=== PATIENT | female | born 1960 | race Caucasian/White ===

== ENCOUNTER 2018-08-26 02:48 | Inpatient (IN) | payer BC ==
[2018-08-26 03:12] LABS: Actual Bicarbonate (HCO3a) 1.4 mEq/L (22-28); Analyzer IN Cardio ER; Calcium, Ionized 1.24 mmol/L (1.12-1.30); Carboxyhemoglobin (COHb) 0.1 gm% (0.0-3.0); Hemoglobin (Hb) 14.1 g/dL (12.0-16.0); O2 Tension (PaO2) 148.9 mmHg (80.0-100.0); Potassium - ABG Lab 4.93 mmol/L (3.70-5.30)
[2018-08-26 03:15] LABS: Base Excess (BEa) -30.7 mEq/L (-2.0 to +3.0); CO2 Tension 7.9 mmHg (35.0-45.0); pH, Arterial 6.87 (7.35-7.45)
[2018-08-26 03:16] LABS: ALV-art Gradient -9.045 (0-20); Puncture Site RRA
[2018-08-26 03:24] LABS: Hemoglobin 13.9 g/dL (12.0-16.0); Mean Corpuscular HGB CONC 31.6 g/dL (32.0-36.0); Mean Corpuscular Hemoglobin 29.8 pg (27.0-31.0); Mean Corpuscular Volume 94.3 fL (78.0-98.0); Mean Platelet Volume 7.4 fL (7.4-10.4); Platelet Count 409 thou/uL (130-400); RBC Distribution Width 12.7 % (11.5-14.5); Red Blood Cell (RBC) Count 4.68 mill/uL (4.20-5.40); White Blood Cell (WBC) Count 23.8 thou/uL (4.8-10.8)
[2018-08-26 03:47] LABS: ALT (SGPT) 19 U/L (8-55); AST (SGOT) 14 U/L (5-34); Alkaline Phosphatase 68 U/L (40-150); BUN (Urea Nitrogen) 24 mg/dL (9.8-20.1); Bilirubin, Total 0.2 mg/dL (0.2-1.2); Calc. Creatinine Clearance 0 mL/min (70-130); Calcium 8.1 mg/dL (7.8-10.44); Chloride 106 mmol/L (98-107); Estimated GFR-MDRD 32; Globulin 2.4 g/dL (2.4-3.5); Glucose 318 mg/dL (70-105); Lipase 30 U/L (8-78); Potassium 5.3 mmol/L (3.5-5.1); Protein, Total 6.4 g/dL (6.0-8.3); Sodium 133 mmol/L (136-145)
[2018-08-26 03:50] LABS: Carbon Dioxide Less than 8 mmol/L (22-29)
[2018-08-26 03:53] LABS: Band 2 % (5-11); Lymphocytes 12 % (21-51); MDiff Complete? YES; Monocytes 4 % (0-10); Neutrophil 82 % (42-75); Platelet Morphology Comment Appears Increased; RBC Morphology Normal
[2018-08-26] MEDS ORDERED: Sodium Bicarb 50 MEQ/50 ML Abboject 8.4% SYRINGE ONE (04:11)
[2018-08-26] MEDS ORDERED: Sodium Bicarb 50 MEQ/50 ML VIAL ONE ×3 (04:12→09:31)
[2018-08-26] MEDS ORDERED: cefTRIAXone\\ROCEPHIN 2 GM VIAL ONE (04:13)
[2018-08-26] MEDS ORDERED: Insulin Regular 100 units/100 ml in NS IVPB SCH (04:15)
[2018-08-26 04:39] LABS: Bilirubin Negative (Negative); Blood, Urine Small (Negative); Clarity CLOUDY (Clear); Glucose, Urine (Dipstick) >=1000 mg/dL (Negative); Leukocyte Negative (Negative); Nitrite Negative (Negative); Protein, Urine (Dipstick) 100 mg/dL (Neg-Trace); Specific Gravity, Urine 1.018 (1.002-1.036); Urobilinogen 0.2 mg/dL (0.2-1.0); pH, Urine 5.5 (5.0-9.0)
[2018-08-26 04:41] LABS: Bacteria/HPF None Seen HPF (None Seen); Pathc Cast-AUWi Flag 2.76 (0-2.49); WBC/HPF 0-3 HPF (0-3)
[2018-08-26 04:52] LABS: Hyaline Casts/LPF 0-3 HYALINE CAST LPF (0-3 Hyaline); Other Casts/LPF 0-3 COARSE GRAN LPF (0-3 Hyaline)
[2018-08-26 04:53] LABS: Renal Epithelial None Seen HPF (0-3); Transitional Epithelial NONE SEEN HPF (0-3)
[2018-08-26 05:43] LABS: BUN (Urea Nitrogen) 25 mg/dL (9.8-20.1); Calc. Creatinine Clearance 0 mL/min (70-130); Calcium 8.7 mg/dL (7.8-10.44); Chloride 104 mmol/L (98-107); Estimated GFR-MDRD 33; Glucose 317 mg/dL (70-105); Potassium 5.2 mmol/L (3.5-5.1); Sodium 139 mmol/L (136-145)
[2018-08-26 05:46] LABS: Carbon Dioxide Less than 8 mmol/L (22-29)
[2018-08-26 05:49] LABS: Base Excess-Venous -24.2 mmol/L (-2.0 to 3.0); CO2 Tension (PvCO2) 18.9 mmHg (40.0-50.0); Calcium, Ionized 1.02 mmol/L (See Comments:); Chloride 114 mmol/L (98-107); Hemoglobin - Calc 13.9 g/dL (12.0-16.0); O2 Tension (PvO2) 28.1 mmHg (35.0-45.0); Potassium 4.7 mmol/L (3.5-5.1); Sodium 137 mmol/L (138-145); T. Carbon Dioxide 5.6 mmol/L (22.0-28.0); pH (Venous) 7.029 (7.320-7.430); vO2 Saturation-calc 31.4 % (60.0-85.0)
[2018-08-26] MEDS ORDERED: Sodium Chloride 0.9% 1,000 ML IV PRN ×6 (06:11→06:32)
[2018-08-26 06:14] VITALS: BMI 40.6
[2018-08-26] MEDS ORDERED: Dextrose 5 %-0.45 % NaCl 1,000 ML IV PRN (06:32)
[2018-08-26] MEDS ORDERED: CCU Electrolyte Replacement 1 EACH IVPB ONE (06:32)
[2018-08-26] MEDS ORDERED: D5 1/2 NS w/20 mEq KCL 1,000 ML IV PRN (06:32)
[2018-08-26] MEDS ORDERED: NS 0.9% w/ 20 MEQ KCL 1,000 ML IV PRN ×2 (06:32)
--- NOTE | 2018-08-26 06:35 | PDOC.PULCN ---
Pulmonology Consult: HPI - Date of Consult Date: 08/26/18 Time: 06:00 - Consult Details Reason for Consult: DKA Requesting Physician: Oliver - History of Present Illness HPI: ENOC WEISS is a 58 year-old F admitted to the ICU for DKA. She has a history of HTN and DMII. She was on 20 U BID of novolin 70/30 until 10 days ago when she was changed to jardiance and stopped the insulin. She states she has been feeling week for the last 2 days but her started to note lethargy last night and brought her into the ED. She denies fevers, chills, sweats, N/V/D, cough, SOB, or dysuria/hematuria. The patient denies any new erythema or rashes. Patient states she has had a decreased appetite for the last 2 days and has not eaten much at all for the last 2 days although does deny vomiting. She denies any pain at the moment but is feeling tired. Pulmonology Consult: ROS - Review of Systems All systems: reviewed and no additional remarkable complaints except as stated ( see below) Pulmonology Consult: PMH Source: patient, family Past Medical History: DMII, HTN - Family History Family history: reviewed and not pertinent - Social History Smoking Status: Never smoker Alcohol Use: rarely Drug Use History: none Living Situation: Pulmonology Consult: Meds - Medications MAR Reviewed: Yes Medications: Current Medications Insulin Human Regular 100 (units/ Sodium Chloride) 101 mls @ 0 mls/hr IVPB INF FARSHAD Sodium Chloride (Normal Saline 0.9%) 1,000 mls @ 500 mls/hr IV .Q2H FARSHAD Stop: 08/26/18 16:00 Sodium Chloride (Normal Saline 0.9%) 1,000 mls @ 1,000 mls/hr IV .Q1H PRN; Protocol PRN Reason: STEP 1: DKA PROTOCOL Sodium Chloride (Normal Saline 0.9%) 1,000 mls @ 500 mls/hr IV .Q2H PRN PRN Reason: STEP 1: DKA PROTOCOL Dextrose/Sodium Chloride (D5 1/2 Ns) 1,000 mls @ 250 mls/hr IV .Q4H PRN; Protocol PRN Reason: Step 4 of DKA Protocol Potassium Chloride/Dextrose/Sod Cl (D5 1/2 Ns W/20 Meq Kcl) 1,000 mls @ 250 mls /hr IV .Q4H PRN; Protocol PRN Reason: Step 4 of DKA Protocol Insulin Human Regular 100 (units/ Sodium Chloride) 101 mls @ 0 mls/hr IVPB INF FARSHAD; Protocol Sodium Chloride (Normal Saline 0.9%) 1,000 mls @ 500 mls/hr IV .Q2H PRN; Protocol PRN Reason: Step 1 of DKA Protocol Sodium Chloride (Normal Saline 0.9%) 1,000 mls @ 1,000 mls/hr IV .Q1H PRN; Protocol PRN Reason: Step 1 of DKA Protocol Sodium Chloride (Normal Saline 0.9%) 1,000 mls @ 250 mls/hr IV .Q4H PRN; Protocol PRN Reason: SEE STEP 3 OF DKA PROTOCOL Sodium Chloride (Normal Saline 0.9%) 1,000 mls @ 500 mls/hr IV .Q2H PRN; Protocol PRN Reason: Step 2 of DKA Protocol Potassium Chloride/Sodium Chloride (Ns 0.9% W/ 20 Meq Kcl) 1,000 mls @ 500 mls/ hr IV .Q2H PRN; Protocol PRN Reason: Step 2 of DKA Protocol Potassium Chloride/Sodium Chloride (Ns 0.9% W/ 20 Meq Kcl) 1,000 mls @ 250 mls/ hr IV .Q4H PRN; Protocol PRN Reason: SEE STEP 3 OF DKA PROTOCOL Miscellaneous Medication (Ccu Electrolyte Replacement) 1 each IVPB ONE ONE Stop: 08/26/18 06:33 - Allergies Allergies/Adverse Reactions: Allergies Allergy/AdvReac Type Severity Reaction Status Date / Time No Known Drug Allergies Allergy Verified 08/26/18 04:03 Pulmonology Consult: PE - Physical Exam Constitutional: NAD Pulmonology Consult: Results - Labs Result Diagrams: 08/26/18 03:01 08/26/18 09:00 - ABG Interpretation ABG Results: POC Bicarbonate Calc 5.0 mmol/L (22.0-28.0) L* 08/26/18 05:44 ABG pH 6.87 (7.35-7.45) L* 08/26/18 03:08 ABG pCO2 7.9 mmHg (35.0-45.0) L* 08/26/18 03:08 ABG O2 Sat Calc/Sreekanth 98.1 % (94.0-98.0) H 08/26/18 03:08 ABG Base Excess -30.7 mEq/L (-2.0 to +3.0) L 08/26/18 03:08 Pulmonology Consult: A/P - Problem (1) DKA (diabetic ketoacidoses) Current Visit: Yes Code(s): E13.10 - OTH DIABETES MELLITUS WITH KETOACIDOSIS WITHOUT COMA Status: Acute (2) Metabolic acidosis due to diabetes mellitus Current Visit: Yes Code(s): E11.69 - TYPE 2 DIABETES MELLITUS WITH OTHER SPECIFIED COMPLICATION; E87.2 - ACIDOSIS Status: Acute (3) Kussmaul breathing Current Visit: Yes Code(s): E87.2 - ACIDOSIS Status: Acute (4) HTN (hypertension) Current Visit: Yes Code(s): I10 - ESSENTIAL (PRIMARY) HYPERTENSION Status: Acute (5) DM2 (diabetes mellitus, type 2) Current Visit: Yes Status: Acute - Time Time: 50% of the time was spent in coordination of care (as documented) at patient's floor/unit and/or counseling patient. Time with Patient: greater than 50 minutes - Plan Plan: REVIEW OF SYSTEMS: Gen: no fever, chills, or sweats, feeling tired Neuro: no numbness/tingling, no weakness, denies headache Eyes: no visual changes ENT: no hearing changes, no sore throat, no runny nose Resp: no cough, no SOB, no wheeze, not feeling short of breath Card: denies chest pain, no palpitations GI: no N/V/D, no abdominal pain, decreased appetite : no dysuria, no hematuria MSK: no myalgias, no joint pain/stiffness Heme: no easy bruising/bleeding Skin: no rash, no erythema PHYSICAL EXAMINATION: General: NAD, alert and oriented x3 HEENT: PERRLA, EOMI, normal sclera, oropharynx without erythema or exudate Neck: Supple. Full ROM. Heart/Cardiovascular System: RRR, Cap refill < 3 seconds, no rub, no murmur Lungs/Respiratory System: clear to auscultation bilaterally. Room air. Kussmaul breathing Abdomen/Gastro-Intestinal System: no abdominal tenderness, normal bowel sounds, no masses, no organomegaly Extremeties: Warm extremities. No cyanosis or edema. Neuro: No gross deficits appreciated. CN 2-12 grossly intact Psychiatry: Awake, Alert and cooperative with exam Skin/ Integumentory: No lesions, rashes, or ulcers Musculoskeletal: Full ROM ASSESSMENT AND PLAN: # DKA w/ metabolic acidosis, and failure of respiratory compensation - initial pH 6.87 -> 7.02 s/p fluids and 4 amps bicarb - kussmaul breathing, BHB 12.8, AG 31, Co2 7.9, bicarb 1.4 - aggressive fluids resus. currently 3L in, tachycardic in 120s-130s - Insulin drip at 11 - currently on NS w/ K, will adjust based on vbg just drawn - q4 hr bmp this AM, monitor resp status closely - replete electrolytes as indcated - source: no clear sign of infection elevated WBC 23.8 likely contraction and stress response, lipase 30 & asx, appears to be 2/2 stopping insulin and switching to jardiance, SGLT-2 inhibitors have been related to DKA # CHAITANYA - Cr 1.65, unknown baseline # HTN - WNL, monitor Dispo: > 2 midnights PCP: Oliver Assessment/Plan - Assessment Assessment: Agree with History,physical, and treatment plan. Would continue to use bicarb to try to get ph above 7.2 to hopefully avoid a need for intubation. Would not decrease insulin. Add D5 or D10 if glucose drops below 300. Critical care time 30 minutes
[2018-08-26] MEDS ORDERED: HUMULIN R 100 UNITS in Sodium Chloride 0.9% 100 ML IVPB SCH (06:45)
[2018-08-26 07:15] LABS: Actual Bicarbonate (HCO3v) 3 mEq/L (22-28); Base Excess -26.8 mEq/L (-2.0 to +3.0); Calcium, Ionized 1.09 mmol/L (1.16-1.32); Chloride (ABG LAB) 107 mmol/L (98-106); Hemoglobin (Hb) 14.4 g/dL (11.7-16.0); Potassium - ABG Lab 3.99 mmol/L (3.70-5.30); Sodium 140.2 mmol/L (133-146)
[2018-08-26 07:26] LABS: Hemoglobin A1c 6.3 % (4.0-6.0)
[2018-08-26] MEDS ORDERED: 1/2 NS w/KCL 20 mEq 1,000 ML IV SCH (07:30)
[2018-08-26 07:35] LABS: Lactic Acid 1.7 mmol/L (0.5-2.2)
[2018-08-26 07:37] LABS: Phosphorus 3.4 mg/dL (2.3-4.7)
[2018-08-26 07:51] LABS: Actual Bicarbonate (HCO3a) 2.6 mEq/L (22-28); Base Excess (BEa) -26.5 mEq/L (-2.0 to +3.0); Calcium, Ionized 1.19 mmol/L (1.12-1.30); Carboxyhemoglobin (COHb) 0.6 gm% (0.0-3.0); Hemoglobin (Hb) 13.7 g/dL (12.0-16.0); O2 Tension (PaO2) 120.9 mmHg (80.0-100.0); Potassium - ABG Lab 3.74 mmol/L (3.70-5.30)
[2018-08-26 07:52] LABS: pH, Arterial 7.01 (7.35-7.45)
[2018-08-26 07:53] LABS: CO2 Tension 10.6 mmHg (35.0-45.0); Puncture Site LRA
[2018-08-26] MEDS ORDERED: Sodium Bicarb 50 MEQ/50 ML Abboject 8.4% SYRINGE IVP SCH (08:00)
[2018-08-26] MEDS: 1/2 NS w/KCL 20 mEq 1,000 ML IV SCH ×4 (08:15→22:57)
[2018-08-26] MEDS: Sodium Bicarbonate 150 MEQ in Dextrose 5% in Water 1,000 ML IV SCH ×2 (08:17→18:17)
--- NOTE | 2018-08-26 08:56 | RAD ---
PORTABLE AP CHEST XRAY: DATE: 08/26/2018. HISTORY: Weakness. Patient has not been feeling well for the last 48 hours. COMPARISON: None available. FINDINGS: Cardiac silhouette and bronchovascular markings are accentuated by shallow depth of inspiration and p ortable technique. The lungs do appear clear. Osseous structures are intact. IMPRESSION: No acute cardiopulmonary process. POS: C
[2018-08-26 09:32] LABS: BUN (Urea Nitrogen) 26 mg/dL (9.8-20.1); Calc. Creatinine Clearance 56 mL/min (70-130); Calcium 7.9 mg/dL (7.8-10.44); Chloride 109 mmol/L (98-107); Estimated GFR-MDRD 32; Glucose 231 mg/dL (70-105); Potassium 3.9 mmol/L (3.5-5.1); Sodium 142 mmol/L (136-145)
[2018-08-26 09:36] LABS: Carbon Dioxide Less than 8 mmol/L (22-29)
[2018-08-26] MEDS: Sodium Chloride 0.9% 1,000 ML IV SCH ×2 (09:38→09:39)
--- NOTE | 2018-08-26 12:09 | HP ---
REASON FOR ADMISSION: Weakness, lethargy. HISTORY OF PRESENT ILLNESS: Ms. Mariola Mari is a 58-year-old female with past medical history of diabetes, hypertension, who came in because of 2 days of weakness and lethargy. The patient states she did not have any chest pain or shortness of breath. No fever. The patient was on insulin before, which was stopped, and recently started on Jardiance as per the request of the patient. The patient did not want to continue taking insulin anymore. It was stopped and initially, it was changed to Byetta injection. It was not covered by insurance, so it was changed jardiance . She has taken the medication for a week only, so she was brought to the emergency room. In the ER, the patient was evaluated and found to be in DKA. The patient received IV fluid boluses about 2 L in the ER as well as sodium bicarbonate infusions and received insulin IV as well as started on insulin infusion. Critical Care was consulted. The patient was also found to have tachycardia and hypotensive as well as hypothermic. The patient currently admitted to CCU for close monitoring and management of DKA. Currently, the patient is still tachycardiac. PAST MEDICAL HISTORY: 1. Diabetes mellitus. 2. Hypertension. 3. Hyperlipidemia. PAST SURGICAL HISTORY: Nothing significant. FAMILY HISTORY: Nothing contributory. SOCIAL HISTORY: The patient lives with family. No history of smoking. No history of alcohol. REVIEW OF SYSTEMS: CARDIOVASCULAR: No chest pain. No shortness of breath. RESPIRATORY: No fever or cough. GASTROINTESTINAL: No nausea or vomiting. No abdominal pain symptoms. CENTRAL NERVOUS SYSTEM: No headache. No dizziness. PHYSICAL EXAMINATION: GENERAL: The patient is awake, not very alert. VITAL SIGNS: Temperature 96.4 initially, pulse 119, respirations 32, blood pressure 180/89, later blood pressure dropped to 130/62, but pulse remained around 129, temperature improved to 98. HEENT: Head is normocephalic, atraumatic. Pupils are equal and reactive. Nasopharynx is pale and dry. Hard and soft palpate, no lesions. SKIN: Skin turgor decreased. NECK: Supple. No JVD. LUNGS: Bilateral air entry present. No rales. No rhonchi. HEART: S1 and S2, regular. Tachycardiac. ABDOMEN: Soft. No distention. No tenderness. No abnormal bowel sounds. RECTAL: No symptoms. CENTRAL NERVOUS SYSTEM: The patient is awake, not very alert. Motor system; power 4/5 in all extremities. Deep tendon reflex 2+ bilaterally. Plantars downgoing. Sensory intact. LABORATORY DATA: CBC shows WBC 23.8, hemoglobin 13, hematocrit 44, and platelets 409. Metabolic panel; sodium 133, potassium 4.3, chloride 106, CO2 less than 8, creatinine 1.6, and glucose 318. Her ABG showed pH of 6.87, pCO2 of 7.9, pO2 of 148, and saturation 98%. IMAGING DATA: Chest x-ray negative. EKG shows sinus tachycardia with heart rate of 180. No acute ST-T wave changes seen. ASSESSMENT: 1. Diabetic ketoacidosis. 2. Severe metabolic acidosis due to diabetic ketoacidosis. 3. Hypertension. 4. Sinus tachycardia. 5. Small breathing. PLAN: 1. CCU monitoring. 2. Insulin infusion. 3. Sodium bicarbonate infusion. 4. IV fluids normal saline at 400 mL/h. 5. Accu-Cheks q.1 hour. Job ID: [id number] [facility]
[2018-08-26 14:21] LABS: Anion Gap 25 mmol/L (10-20); BUN (Urea Nitrogen) 24 mg/dL (9.8-20.1); Calc. Creatinine Clearance 62 mL/min (70-130); Calcium 7.6 mg/dL (7.8-10.44); Carbon Dioxide 12 mmol/L (22-29); Chloride 109 mmol/L (98-107); Estimated GFR-MDRD 36; Glucose 173 mg/dL (70-105); Potassium 3.6 mmol/L (3.5-5.1); Sodium 142 mmol/L (136-145)
[2018-08-26] MEDS ORDERED: Dextrose 50% Abboject 50 ML SYRINGE SLOW IVP PRN (15:38)
[2018-08-26] MEDS ORDERED: Dextrose 5% in Water 1,000 ML IV PRN (15:38)
[2018-08-26] MEDS ORDERED: Magnesium Oxide 400 MG TAB PO PRN ×2 (15:40)
[2018-08-26] MEDS ORDERED: Potassium Phosphate 15 MMOL in Sodium Chloride 0.9% 250 ML 250 ML IV PRN (15:40)
[2018-08-26] MEDS ORDERED: Potassium Chloride 20 MEQ TAB PO PRN (15:40)
[2018-08-26] MEDS ORDERED: Magnesium 2 GM/NS 0.9% 100 ML 2 GM in Premix Bag 1 BAG IVPB PRN (15:40)
[2018-08-26] MEDS ORDERED: CCU ELECTROLYTE REPLACEMENT PROTOCOL FS PRN (15:40)
[2018-08-26] MEDS ORDERED: Potassium Phosphate 12 MMOL in Sodium Chloride 0.9% 250 ML 250 ML IV PRN (15:40)
[2018-08-26] MEDS ORDERED: Potassium Phosphate 9 MMOL in Sodium Chloride 0.9% 100 ML IVPB PRN (15:40)
[2018-08-26] MEDS ORDERED: Potassium Chloride 40 MEQ in Premix Bag 1 BAG IVPB PRN (15:40)
[2018-08-26] MEDS ORDERED: Potassium Chloride 40 MEQ in Sodium Chloride 0.9% 250 ML 250 ML IVPB PRN (15:40)
[2018-08-27] MEDS: 1/2 NS w/KCL 20 mEq 1,000 ML IV SCH ×2 (04:30→19:08)
[2018-08-27 05:27] LABS: Anion Gap 22 mmol/L (10-20); BUN (Urea Nitrogen) 18 mg/dL (9.8-20.1); Calc. Creatinine Clearance 68 mL/min (70-130); Calcium 7.8 mg/dL (7.8-10.44); Chloride 111 mmol/L (98-107); Estimated GFR-MDRD 40; Glucose 147 mg/dL (70-105); Potassium 3.9 mmol/L (3.5-5.1); Sodium 138 mmol/L (136-145)
[2018-08-27 05:30] LABS: Carbon Dioxide 9 mmol/L (22-29)
[2018-08-27] MEDS ORDERED: Dextrose 50% Abboject 50 ML SYRINGE SLOW IVP PRN (09:05)
[2018-08-27] MEDS ORDERED: Dextrose 5% in Water 1,000 ML IV PRN (09:05)
[2018-08-27] MEDS ORDERED: Insulin Regular 300 UNITS/3 ML VIAL SC PRN (09:05)
[2018-08-27] MEDS: Sodium Bicarbonate 100 MEQ in Dextrose 5% in Water 1,000 ML IV SCH (09:40)
--- NOTE | 2018-08-27 09:40 | PRG ---
DATE OF SERVICE: 08/27/2018 SUBJECTIVE: The patient is feeling better. She is still on a low dose of insulin drip. OBJECTIVE: VITAL SIGNS: On exam, temperature 98.7, pulse O2 saturation 98%. 24-hour intake 5461, output 3075. HEENT: Unremarkable. NECK: No JVD. CHEST: Clear. CARDIAC: S1, S2. Regular. ABDOMEN: Soft. EXTREMITIES: No edema. LABORATORY DATA: Sodium 138, potassium 3.9, chloride 111, CO2 of 9, BUN 18, creatinine 1.3, glucose 147. White blood cell count 23.8, hematocrit 44.2, and platelet count 409. ASSESSMENT: Type 2 diabetes mellitus with likely starvation ketosis with combined mild diabetic ketoacidosis. PLAN: 1. I will change her IV fluids for sodium bicarbonate as she has somewhat of a renal tubular acidosis with this. 2. Even though, her gap is still open, I think she is probably out of DKA, so I will switch her over to NPH insulin, add an aggressive sliding scale every 4 hours and start to feed her with today. We will see whether or not she has rebound hyperglycemia from that. Job ID: [id number]
[2018-08-27] MEDS: NPH, Human Insulin Isophane 300 UNIT/3 ML VIAL SC SCH ×2 (10:24→20:31)
[2018-08-27] MEDS: Insulin Regular 300 UNITS/3 ML VIAL SC PRN ×2 (11:56→17:00)
--- NOTE | 2018-08-27 14:25 | PDOC.PN ---
- Subjective Encounter Start Date: 08/27/18 Encounter Start Time: 14:22 Patient seen and examined, no new issues or complaints, all questions answered. No family at bedside. - Objective Vital Signs & Weight: Vital Signs (12 hours) Temp Pulse Ox 08/27/18 12:00 99.2 F 08/27/18 08:00 98.7 F 99 08/27/18 04:00 98.6 F Weight Admit Weight 207 lb 14.334 oz Weight 207 lb 14.334 oz Most Recent Monitor Data Heart Rate from ECG 94 NIBP 122/89 NIBP BP-Mean 100 Respiration from ECG 26 SpO2 100 I&O: 08/26/18 08/27/18 08/28/18 06:59 06:59 06:59 Intake Total 5461.6 1293 Output Total 3075 1070 Balance 2386.6 223 Result Diagrams: 08/26/18 03:01 08/27/18 04:33 Additional Labs: Accuchecks 08/27/18 08/27/18 08/27/18 11:53 10:31 08:31 POC Glucose 168 H 170 H 154 H 08/27/18 08/27/18 08/27/18 07:33 06:35 03:13 POC Glucose 137 H 138 H 153 H 08/27/18 08/27/18 08/26/18 02:18 01:19 23:59 POC Glucose 151 H 137 H 146 H 08/26/18 08/26/18 08/26/18 22:53 21:31 20:33 POC Glucose 142 H 136 H 140 H 08/26/18 08/26/18 08/26/18 19:36 18:24 17:25 POC Glucose 120 H 115 H 102 08/26/18 08/26/18 08/26/18 16:13 15:19 14:14 POC Glucose 106 144 H 168 H Phys Exam - Physical Examination Constitutional: NAD HEENT: PERRLA, moist MMs, sclera anicteric Neck: no nodes, no JVD, supple Respiratory: no wheezing, no rales, no rhonchi Cardiovascular: RRR, no significant murmur, no rub Gastrointestinal: soft, non-tender, no distention Musculoskeletal: pulses present, edema present (trace) Dx/Plan (1) DKA (diabetic ketoacidoses) Code(s): E13.10 - OTH DIABETES MELLITUS WITH KETOACIDOSIS WITHOUT COMA Status : Acute (2) DM2 (diabetes mellitus, type 2) Status: Acute (3) HTN (hypertension) Code(s): I10 - ESSENTIAL (PRIMARY) HYPERTENSION Status: Acute (4) Kussmaul breathing Code(s): E87.2 - ACIDOSIS Status: Acute (5) Metabolic acidosis due to diabetes mellitus Code(s): E11.69 - TYPE 2 DIABETES MELLITUS WITH OTHER SPECIFIED COMPLICATION; E87.2 - ACIDOSIS Status: Acute - Plan * continue current plan of care * DKA management per ICU team * patient stable * keep in ICU for now, can likely move out of ICU in AM * case and plan d/w patient at length, she understood and agreed with this plan.
[2018-08-28] MEDS: Sodium Bicarbonate 100 MEQ in Dextrose 5% in Water 1,000 ML IV SCH (00:05)
[2018-08-28 06:01] LABS: Anion Gap 17 mmol/L (10-20); BUN (Urea Nitrogen) 13 mg/dL (9.8-20.1); Calc. Creatinine Clearance 84 mL/min (70-130); Calcium 8.3 mg/dL (7.8-10.44); Carbon Dioxide 16 mmol/L (22-29); Chloride 110 mmol/L (98-107); Estimated GFR-MDRD 51; Glucose 160 mg/dL (70-105); Potassium 3.6 mmol/L (3.5-5.1); Sodium 139 mmol/L (136-145)
[2018-08-28] MEDS: Insulin Regular 300 UNITS/3 ML VIAL SC PRN ×2 (07:38→12:03)
[2018-08-28] MEDS: NPH, Human Insulin Isophane 300 UNIT/3 ML VIAL SC SCH ×3 (07:38→20:58)
[2018-08-28] MEDS ORDERED: NPH, Human Insulin Isophane 300 UNIT/3 ML VIAL SC SCH (09:21)
--- NOTE | 2018-08-28 09:49 | PRG ---
DATE OF SERVICE: 08/28/2018 SUBJECTIVE: The patient is feeling better. No acute complaints. OBJECTIVE: VITAL SIGNS: On exam, temperature is 98.7, pulse 87, blood pressure 150/83. A 24-hour intake 2426, output 4725. HEENT: Unremarkable. NECK: No JVD. CHEST: Clear. CARDIAC: S1, S2. Regular. ABDOMEN: Soft. EXTREMITIES: No edema. LABORATORY DATA: Sodium 139, potassium 3.6, chloride 110, CO2 16, anion gap is down to 13, BUN 13, creatinine 1.1, glucose 160. ASSESSMENT: Resolved diabetic ketoacidosis/ketosis in a type 2 diabetic. PLAN: 1. Increase her NPH a little. 2. Transfer out to the medical floor. Continue blood glucose monitoring. Job ID: [id number]
[2018-08-28] MEDS ORDERED: metFORMIN XR 500 MG TAB PO SCH (10:15)
--- NOTE | 2018-08-28 11:00 | PDOC.PN ---
- Subjective Encounter Start Date: 08/28/18 Encounter Start Time: 10:58 Patient seen and examined, no new issues or complaints, at bedside, all questions answered. - Objective Vital Signs & Weight: Vital Signs (12 hours) Temp Pulse Resp BP Pulse Ox 08/28/18 10:30 98.2 F 88 18 149/77 H 97 08/28/18 08:00 98.7 F 08/28/18 07:45 99 08/28/18 04:00 98.6 F 08/28/18 00:00 98.5 F Weight Admit Weight 207 lb 14.334 oz Weight 207 lb 14.334 oz Most Recent Monitor Data Heart Rate from ECG 93 NIBP 138/82 NIBP BP-Mean 100 Respiration from ECG 17 SpO2 97 I&O: 08/27/18 08/28/18 08/29/18 06:59 06:59 06:59 Intake Total 5461.6 3426.2 670 Output Total 3075 4725 570 Balance 2386.6 -1298.8 100 Result Diagrams: 08/26/18 03:01 08/28/18 04:21 Additional Labs: Accuchecks 08/28/18 08/28/18 08/28/18 07:33 04:06 00:05 POC Glucose 188 H 164 H 171 H 08/27/18 08/27/18 08/27/18 19:48 16:48 11:53 POC Glucose 258 H 215 H 168 H 08/27/18 10:31 POC Glucose 170 H Phys Exam - Physical Examination Constitutional: NAD obese HEENT: PERRLA, moist MMs, sclera anicteric Neck: no nodes, no JVD, supple Respiratory: no wheezing, no rales, no rhonchi Cardiovascular: RRR, no significant murmur, no rub Gastrointestinal: soft, non-tender, no distention Musculoskeletal: pulses present, edema present (trace) Dx/Plan (1) DKA (diabetic ketoacidoses) Code(s): E13.10 - OTH DIABETES MELLITUS WITH KETOACIDOSIS WITHOUT COMA Status : Acute (2) DM2 (diabetes mellitus, type 2) Status: Acute (3) HTN (hypertension) Code(s): I10 - ESSENTIAL (PRIMARY) HYPERTENSION Status: Acute (4) Kussmaul breathing Code(s): E87.2 - ACIDOSIS Status: Acute (5) Metabolic acidosis due to diabetes mellitus Code(s): E11.69 - TYPE 2 DIABETES MELLITUS WITH OTHER SPECIFIED COMPLICATION; E87.2 - ACIDOSIS Status: Acute - Plan * continue with insulins * cont IVFs for now * bicarb improving to 16 * DKA management per ICU * hemodynamically stable * could probably transfer to floor today if ok with ICU team * DC plans in 24-48hrs once bicarb levels normalize, gap improves and patient stable * case and plan d/w patient and at length, they understood and agreed with this plan.
[2018-08-28] MEDS: metFORMIN XR 500 MG TAB PO SCH (17:08)
[2018-08-29 06:39] LABS: Anion Gap 12 mmol/L (10-20); BUN (Urea Nitrogen) 12 mg/dL (9.8-20.1); Calc. Creatinine Clearance 116 mL/min (70-130); Calcium 8.7 mg/dL (7.8-10.44); Carbon Dioxide 27 mmol/L (22-29); Chloride 108 mmol/L (98-107); Estimated GFR-MDRD 74; Glucose 108 mg/dL (70-105); Potassium 3.3 mmol/L (3.5-5.1); Sodium 144 mmol/L (136-145)
[2018-08-29] MEDS: metFORMIN XR 500 MG TAB PO SCH ×2 (08:59→16:19)
[2018-08-29] MEDS: NPH, Human Insulin Isophane 300 UNIT/3 ML VIAL SC SCH (09:00)
[2018-08-29] MEDS: Insulin Regular 300 UNITS/3 ML VIAL SC PRN (12:29)
[2018-08-29 16:22] VITALS: BP 155/96; TEMP 98.3
[2018-08-29] MEDS ORDERED: Potassium Chloride 20 MEQ TAB PO SCH (18:00)
--- NOTE | 2018-08-30 13:14 | DIS ---
DATE OF ADMISSION: 08/26/2018 DATE OF DISCHARGE: 08/29/2018 ADMITTING DIAGNOSES: 1. Severe diabetic ketoacidosis. 2. Severe metabolic acidosis. 3. Hypertension. 4. Sinus tachycardia. 5. Kussmaul breathing. FINAL DIAGNOSES: 1. Diabetic ketoacidosis, improved. 2. Metabolic acidosis, improved. 3. Hypertension control, improved. 4. Sinus tachycardia, improved. BRIEF SUMMARY OF HOSPITAL COURSE: Ms. Mari is a 58-year-old female admitted because of severe DKA. The patient was feeling weak and lethargic, found to be in DKA, was started on IV insulin infusion and admitted to CCU for DKA protocol initially. The patient was seen by Pulmonary, who suggested IV fluid boluses in view of severe DKA. The patient received boluses IV fluids and her tachycardia gradually improved. Her acidosis also improved. Her initial bicarb was less than 8 but the following day, it went up to 9 and then 12, then 16, and then finally it went up to 27. The patient's blood sugar remained stable. She was started on diet and NPH insulin was started. The patient tolerated diet very well. Her renal function also improved, her creatinine came down from 1.65 to 0.80. BUN came down from 24 to 12. PHYSICAL EXAMINATION: GENERAL: The patient is being discharged. At the time of discharge, she was stable. VITAL SIGNS: Stable. LUNGS: Clear. HEART: Sounds regular. ABDOMEN: Soft, nontender. Bowel sounds present. DISCHARGE MEDICATIONS: Include: 1. Metformin 1000 b.i.d. 2. Lisinopril with hydrochlorothiazide 20/12.5 daily. 3. Lipitor 20 mg daily. 4. NPH insulin 20 units b.i.d. FOLLOWUP: The patient will come for a followup in 2 weeks. Job ID: [id number] [facility]
== END 2018-08-29 18:16 | disposition home or self-care (01) | DRG 638 ==
LOC: ERS 02:48 → EDBD 02:48 → CCU 06:01 → T4-B 08-28 09:24
PROVIDERS: ADMIT Internal Medicine; ATTEND Internal Medicine
DX: E11.10 Type 2 diabetes mellitus with ketoacidosis without coma (principal); N17.9 Acute kidney failure, unspecified; E87.2 Acidosis; E78.5 Hyperlipidemia, unspecified; I10 Essential (primary) hypertension; Z79.4 Long term (current) use of insulin; Z79.899 Other long term (current) drug therapy
CPT/HCPCS: 36415; 36416; 51702; 71045; 80048; 80053; 81003; 81015; 82010; 82330; 82435; 82803; 82805; 83036; 83605; 83690; 83735; 84100; 84132; 84295; 84484; 85014; 85025; 93005; 96365; 96375; J0696; J1815; J3480; J3490; J7050; J7070

== ENCOUNTER 2019-01-10 13:27 | Outpatient (CLI) | payer BC, OTHER ==
--- NOTE | 2019-01-23 13:30 | MMO ---
Bilateral MAMMO Bilat Screen [facility]. CLINICAL HISTORY: Patient is 58 years old and is seen for screening. The patient has no family history of breast cancer. The patient has no personal history of cancer. VIEWS: The views performed were: bilateral craniocaudal with tomosynthesis; bilateral mediolateral oblique with tomosynthesis; and right mediolateral oblique. FILMS COMPARED: The present examination has been compared to prior imaging studies performed at [facility] on 07/21/2000, 04/02/2005 and 07/10/2009, and at [facility] on 12/23/2011. MAMMOGRAM FINDINGS: There are scattered fibroglandular densities. There are no suspicious masses, suspicious calcifications, or new areas of architectural distortion. IMPRESSION: THERE IS NO MAMMOGRAPHIC EVIDENCE OF MALIGNANCY. A ROUTINE FOLLOW-UP MAMMOGRAM IN 1 YEAR IS RECOMMENDED. THE RESULTS OF THIS EXAM WERE SENT TO THE PATIENT. ACR BI-RADS Category 1 - Negative MAMMOGRAPHY NOTE: 1. A negative mammogram report should not delay a biopsy if a dominant of clinically suspicious mass is present. 2. Approximately 10% to 15% of breast cancers are not detected by mammography. 3. Adenosis and dense breasts may obscure an underlying neoplasm. Reported by: STORM TODD MD Electonically Signed: [id number]
== END 2019-01-10 13:28 | disposition home or self-care (01) ==
LOC: BICMAMMO 13:27
PROVIDERS: ATTEND Internal Medicine
DX: Z12.31 Encounter for screening mammogram for malignant neoplasm of breast (principal)
CPT/HCPCS: 77063; 77067